=== PATIENT | male | born 1955 | race Caucasian/White ===

== ENCOUNTER 2023-08-01 09:46 | Emergency (ER) | payer MEDICARE ==
[~2023-08-01] VITALS: Ht 167.6 cm; Wt 85.0 kg
[2023-08-01 09:54] VITALS: BP 146/81; PULSE 102; RESP 18; TEMP 97.4; O2SAT 97
[2023-08-01] MEDS ORDERED: BENC TP (10:24)
[2023-08-01] MEDS ORDERED: SULF-59 PO (10:24)
== END 2023-08-01 10:43 | disposition home or self-care (01) ==
LOC: MED 09:46
DX: L03.115 Cellulitis of right lower limb (principal); Z79.899 Other long term (current) drug therapy
CPT/HCPCS: 99283